=== PATIENT | male | born 1950 ===

== ENCOUNTER 2017-05-14 06:50 | Day surgery (SDC) | payer OTHER ==
[~2017-05-14 06:50] MED LIST: AMARYL PO; CHOLESTYRAMINE L4 GM PO; FENOFIBRATE160 MG PO; GLUCOPHAGE XR750 MG PO; HYDROCHLOROTHIA25 MG PO; INTESTINEX680 M1 PO; LIPITOR20 MG PO; NEURONTIN300 MG PO; PROTONIX40 MG PO
[2017-05-14] MEDS ORDERED: PERCOCET 5-3251 EACH PO (10:11)
[2017-05-14] MEDS ORDERED: RECTICARE30 GM TOP (10:11)
== END 2017-05-14 15:06 | disposition home or self-care (01) ==
LOC: CIR.AMB 06:50
DX: A60.1 Herpesviral infection of perianal skin and rectum (principal)